=== PATIENT | female | born 1960 | race Caucasian/White ===

== ENCOUNTER 2023-10-24 12:15 | Emergency (ER) | payer OTHER, BC, SELFPAY ==
[2023-10-24 12:19] VITALS: BP 178/93; PULSE 70; RESP 18; TEMP 36.4; O2SAT 98; BMI 39.9
--- NOTE | 2023-10-24 13:19 | ED.CHESTPAIN ---
HPI - Chest Pain General Chief Complaint: Chest Pain Stated Complaint: chest pains,shortness of breath Time Seen by Provider: 10/24/23 12:42 History of Present Illness HPI narrative: This 62-year-old female comes in reporting chest discomfort upon awakening this morning. She states that the pain is somewhat reproducible when palpating across her left upper chest. She also had some diaphoresis. She does not report any vomiting or lightheadedness. She at does not report any exercise intolerance causing chest pain recently. She has been doing more active things recently including stair climbing which does cause shortness of breath but no chest pain. She was also to using 3 lb weights in her arms recently and felt like she over did it with some arm discomfort. She is taking Mounjaro for diabetes and states that it has not produced any weight loss for her. The dosage was increased about a week ago. Related Data Home Medications ?Medication ?Instructions ?Recorded ?Confirmed glimepiride 1 mg tablet mg PO 10/24/23 rosuvastatin 10 mg tablet 10 mg PO QPM 10/24/23 10/24/23 tirzepatide 7.5 mg/0.5 mL mg subcut 10/24/23 subcutaneous pen injector (Mounjaro) Allergies Allergy/AdvReac Type Severity Reaction Status Date / Time latex Allergy Unverified 10/24/23 12:25 Review of Systems Status of ROS Reports: 10 or more systems reviewed and unremarkable except as noted in History and below Narrative Constitutional: No fevers, no weight gain or loss. Eyes: No discharge. No vision changes. HENT: No congestion, no sore throat, no ear pain. Cardiovascular: No palpitations. Respiratory: No shortness of breath, no wheezes, no cough. Gastrointestinal: No abdominal pain, no vomiting, no diarrhea. Genitourinary: No dysuria, no hematuria. Musculoskeletal: Normal range of motion. Skin: No rashes, no pruritis. Neurological: No dizziness, weakness, sensory change, speech change. Endo/Heme/Allergies: No bruising or bleeding. No polydipsia. Pysch: no suicidality, no anxiety, no insomnia. All other systems reviewed and are negative. PFSH PFSH Social History Smoking Status: Never smoker Do you use any of these nicotine containing products: None Second hand tobacco smoke exposure: No How often do you have a drink containing alcohol: never AUDIT-C Alcohol total score: 0 Non-prescribed substance use: denies use Exam Narrative Exam Narrative: Constitutional: Well-developed, well-nourished, no acute distress. HEENT: Normocephalic, atraumatic. Neck: Normal range of motion. Nontender. Supple. Heart: Regular. No murmurs. Normal rate. Intact distal pulses. Lungs: Clear to auscultation. No wheezes, rhonchi, or rales. Chest discomfort is reproducible when palpating a across her left upper chest. Abdomen: Normal bowel sounds. Nontender. No rebound tenderness. Genitalia: Deferred. Back: No midline tenderness. Normal range of motion. Extremities: Normal range of motion. No injury. Skin: Intact. No rash. Warm. No erythema or pallor. Neurologic: No altered sensation. No weakness. Alert and oriented. Psychiatric: No suicidality. No anxiety or depression. No insomnia. Nursing notes and vitals signs are reviewed. Const Vital Signs, click to edit/add: Vital Signs - 24 hr 10/24/23 12:19 Temperature 97.5 F L Pulse Rate [Right Pulse Oximeter] 70 Respiratory Rate 18 Blood Pressure [Right Upper Arm] 178/93 H Pulse Oximetry 98 Oxygen Delivery Method Room Air Course Vital Signs Vital signs: Initial Vital Signs Temperature 97.5 F L 10/24/23 12:19 Temperature Source Temporal Artery Scan 10/24/23 12:19 Pulse Rate 70 10/24/23 12:19 Pulse Rhythm Regular 10/24/23 12:19 Respiratory Rate 18 10/24/23 12:19 Blood Pressure 178/93 H 10/24/23 12:19 Blood Pressure Mean 121 H 10/24/23 12:19 Blood Pressure Position Sitting 10/24/23 12:19 Pulse Oximetry 98 10/24/23 12:19 Oxygen Delivery Method Room Air 10/24/23 12:19 Vital Signs Temperature 97.5 F L 10/24/23 12:19 Pulse Rate 70 10/24/23 12:19 Respiratory Rate 18 10/24/23 12:19 Blood Pressure 178/93 H 10/24/23 12:19 Pulse Oximetry 98 10/24/23 12:19 Oxygen Delivery Method Room Air 10/24/23 12:19 Temperature 97.5 F L 10/24/23 12:19 Pulse Rate 70 10/24/23 12:19 Respiratory Rate 18 10/24/23 12:19 Blood Pressure 178/93 H 10/24/23 12:19 Pulse Oximetry 98 10/24/23 12:19 Oxygen Delivery Method Room Air 10/24/23 12:19 MDM - Chest Pain MDM Narrative Medical decision making narrative: This patient comes in with chest discomfort upon awakening this morning as described above. She continues to have constant tightness and discomfort in her left upper chest that is reproducible when palpating this area and sometimes when taking a deep breath. Her EKG and labs all returned with reassuring findings. Most likely her symptoms are chest wall related. The patient states that she was increasing activity recently including using some weights with her arms and now likely has aches and pains related to overuse injury. She is okay to be discharged home. She states that she will use [id number] medicines as needed and directed an increase activity as tolerated. Lab Data Labs: Lab Results 10/24/23 10/24/23 Range/Units 13:35 13:45 WBC 9.95 (4.50-11.00) K/uL RBC 4.95 (4.00-5.20) m/uL Hgb 13.2 (12.0-16.0) gm/dL Hct 41.1 (33.0-51.0) % MCV 83 (80-100) fL MCH 27 (26-34) pg MCHC 32 (32-36) gm/dL RDW Coeff of [place] 13.6 (11.5-15.5) % Plt Count 257 (140-440) K/uL Neut % (Auto) 65.1 (42.0-72.0) % Lymph % (Auto) 26.3 (20-44) % [place] % (Auto) 7.7 (0.0-11.0) % Eos % (Auto) 0.6 (0.0-7.0) % Baso % (Auto) 0.1 (0.0-3.0) % Neut # (Auto) 6.47 (1.7-7.0) K/uL Lymph # (Auto) 2.62 (0.90-2.90) K/uL [place] # (Auto) 0.80 (0.00-0.90) K/UL Eos # (Auto) 0.06 (0.00-0.50) K/uL Baso # (Auto) 0.01 (0.00-0.30) K/uL Abs Immat Gran (auto) 0.02 (0.00-0.30) K/uL Imm/Tot Granulo (auto) 0.2 % Sodium 139 (135-149) mmol/L Potassium 4.1 (3.6-5.1) mmol/L Chloride 106 (96-114) mmol/L Carbon Dioxide 27 (20-32) mmol/L Anion Gap 6 L (7-15) mEq/L BUN 9 (7-30) mg/dL Creatinine 0.6 (0.5-1.5) mg/dL Estimated Creat Clear 53.21 Estimated GFR 100 ml/min Glucose 153 H (60-115) mg/dL Calcium 9.8 (8.4-10.6) mg/dL POC Troponin I 0.02 (0.01-0.04) ng/ml ECG Data Attestation: I personally reviewed and interpreted this ECG as follows: Interpretation: Normal sinus rhythm. Rate is 69 beats per minute. There are no ST or T-wave abnormalities. There are occasional premature ventricular complexes. Discharge Plan Discharge Clinical Impression: Chest wall pain Patient Disposition: Home, Self-Care Condition: Stable Additional Instructions: Increase activity as tolerated. Use [id number] medicines as needed and directed. Follow up with MD or return if worsening. Prescriptions: No Action glimepiride 1 mg tablet PO rosuvastatin 10 mg tablet 10 mg PO QPM Mounjaro 7.5 mg/0.5 mL pen injector subcut Follow Up/Referrals: Glenn Riley PA-C [Primary Care Provider] - Stand Alone Forms: [facility] Info Instructions
[2023-10-24 13:47] LABS: Hematocrit 41.1 % (33.0-51.0); Hemoglobin* 13.2 gm/dL (12.0-16.0); Lymphocytes Percent Auto 26.3 % (20-44); Mean Corpuscular HGB Conc 32 gm/dL (32-36); Mean Corpuscular Hemoglobin 27 pg (26-34); Mean Corpuscular Volume 83 fL (80-100); Neutrophils Percent Auto 65.1 % (42.0-72.0); Platelet Count* 257 K/uL (140-440); RDW Coefficient of Variation % 13.6 % (11.5-15.5); Red Blood Count 4.95 m/uL (4.00-5.20); White Blood Count* 9.95 K/uL (4.50-11.00)
[2023-10-24 13:48] LABS: Basophils Absolute Auto 0.01 K/uL (0.00-0.30); Basophils Percent Auto 0.1 % (0.0-3.0); Eosinophils Absolute Auto 0.06 K/uL (0.00-0.50); Eosinophils Percent Auto 0.6 % (0.0-7.0); Immature Granulocytes Abs Auto 0.02 K/uL (0.00-0.30); Immature Granulocytes Pct Auto 0.2 %; Lymphocytes Absolute Auto 2.62 K/uL (0.90-2.90); Monocytes Percent Auto 7.7 % (0.0-11.0); Neutrophils Absolute Auto 6.47 K/uL (1.7-7.0)
[2023-10-24 13:51] LABS: Slide Review Reflex No
[2023-10-24 13:52] LABS: Troponin, Point-of-Care* 0.02 ng/ml (0.01-0.04)
[2023-10-24 14:00] LABS: Chloride* 106 mmol/L (96-114); Potassium* 4.1 mmol/L (3.6-5.1); Sodium* 139 mmol/L (135-149)
[2023-10-24 14:02] LABS: Creatinine* 0.6 mg/dL (0.5-1.5); Est. Creatinine Clearance* 53.21; Estimated Glomerular Filt Rate 100 ml/min
[2023-10-24 14:03] LABS: Anion Gap 6 mEq/L (7-15); Blood Urea Nitrogen* 9 mg/dL (7-30); Calcium* 9.8 mg/dL (8.4-10.6); Carbon Dioxide* 27 mmol/L (20-32); Glucose* 153 mg/dL (60-115)
[2023-10-24 15:46] LABS: D Dimer Quantitative* 0.26 ug/ml (0.00-0.50)
== END 2023-10-24 15:05 | disposition home or self-care (01) ==
PROVIDERS: Emergency Provider Emergency Medicine Emergency Medical Services; PCP Physician Assistant Medical
DX: R07.9 Chest pain, unspecified (principal)
CPT/HCPCS: 36415; 80048; 84484; 85025; 85379; 93005; 99284

== ENCOUNTER 2024-02-16 10:10 | Emergency (ER) | payer OTHER, MEDICARE, SELFPAY ==
[2024-02-16 10:47] VITALS: BP 137/72; PULSE 67; RESP 20; TEMP 36.1; O2SAT 95; BMI 38.1
--- NOTE | 2024-02-16 12:17 | CRLHL7_ITS ---
For Patients: As a result of the Century Cures Act, medical imaging exams and procedure reports are released immediately into your electronic medical record. You may view this report before your referring provider. If you have questions, please contact your health care provider. Indication: Swelling at the angle of the jaw Technique: Volumetric multidetector CT images of the cervical soft tissues were obtained without the administration of low osmolar intravenous contrast. No low osmolar intravenous contrast Comparison: None available. Findings: The partially visualized brain parenchyma is normal in attenuation without evidence of abnormal enhancement. The orbits and their contents are within normal limits. There is minimal chronic mucosal thickening. The mastoid air cells are clear. The nasopharynx is unremarkable. The fossae of Rosenmuller are clear. The oropharynx is unremarkable. The hypopharynx is clear. There is inflammatory change of the left parotid gland with likely areas of scattered focal fatty sparing and/or interspersed intraglandular lipoma. No obvious fluid collection is identified. The vocal folds are nonthickened with symmetrical appearance. The thyroid gland is normal in attenuation. There are reactive cervical lymph nodes. The lung apices are clear. The cervical vertebral body heights are grossly maintained with moderate to severe multilevel degenerative disc disease. Impression: Moderate inflammatory change of the left parotid gland commensurate with developing parotiditis. No obvious fluid collection is appreciated. Minimal reactive lymph nodes. No obvious obstructive sialolith. Please note that all CT scans at this facility use dose modulation, iterative reconstruction, and/or weight-based dosing when appropriate to reduce radiation dose to as low as reasonably achievable. Dictated by Adrian Garza MD @ 02/16/2024 1:12:26 PM (Electronically Signed)
[2024-02-16 12:32] LABS: Creatinine, Point-of-Care* 0.7 mg/dl (0.6-1.3)
[2024-02-16 13:07] VITALS: BP 144/77; PULSE 72; RESP 20; O2SAT 97
--- NOTE | 2024-02-16 13:12 | ED.GENADULT ---
HPI - General Adult General Chief complaint: Unspecified Complaint, Adult Stated complaint: LT jaw neck swelling pain Time Seen by Provider: 02/16/24 11:55 Source: patient Mode of arrival: ambulatory Limitations: no limitations History of Present Illness HPI narrative: Patient is a 63-year-old female coming in today concerned about swelling of her face and neck. She states that she noticed it not this morning but yesterday morning when she woke up. She felt a fullness in her jaw going into her neck. The area felt itchy and uncomfortable. So she tried some ice packs. She tried to get in with her physician but was unable to do so. This morning she woke up and she felt that the fullness in her face was bigger, the whole area felt very tight and uncomfortable. The discomfort radiated into her ear in all the way down into her neck. She denies any systemic symptoms like fevers or chills. No difficulty breathing or swallowing. No trismus. No difficulty hearing. No recent infection or illness that she is aware of. Patient states that she is fully immunized. She does have a history of diabetes and hyperlipidemia. Related Data Home Medications ?Medication ?Instructions ?Recorded ?Confirmed glimepiride 1 mg tablet mg PO 10/24/23 rosuvastatin 10 mg tablet 10 mg PO QPM 10/24/23 10/24/23 tirzepatide 7.5 mg/0.5 mL mg subcut 10/24/23 subcutaneous pen injector (Nanette) Previous Rx's ?Medication ?Instructions ?Recorded amoxicillin 875 mg-potassium 1 tab PO BID 7 days #14 tabs 02/16/24 clavulanate 125 mg tablet Allergies Allergy/AdvReac Type Severity Reaction Status Date / Time acetaminophen [From Percocet] Allergy Intermediate Hives Verified 02/16/24 10:46 Iodinated Contrast Media Allergy Intermediate Difficulty Verified 02/16/24 10:46 Breathing oxycodone [From Percocet] Allergy Intermediate Hives Verified 02/16/24 10:46 latex Allergy Unverified 10/24/23 12:25 Review of Systems Status of ROS: Reports: 10 or more systems reviewed and unremarkable except as noted in History and below PFSH PFS Social History Smoking Status: Never smoker Do you use any of these nicotine containing products: None Second hand tobacco smoke exposure: No How often do you have a drink containing alcohol: never AUDIT-C Alcohol total score: 0 Non-prescribed substance use: denies use Exam Narrative: Exam Narrative: Overweight come well-developed patient in no acute distress. Alert and oriented. Answers questions appropriately. Mood and affect are appropriate. Thoughts are goal oriented and rational. No tangential or magical thinking noted. Patient speaks in full sentences without needing to catch her breath. Voice sounds normal. Speech is not slurred or pressured. HEENT: Normocephalic atraumatic. Pupils are equally round reactive to light. Extraocular muscles are intact. Conjunctivae are moist without any icterus noted. Moist mucous membranes. Posterior pharynx is normal. Neck is soft. Patient has a firm fullness that starts just anterior and distal to the ear involves the entire angle of the jaw. The tenderness radiates into her neck and she has tenderness below the angle of the jaw on the left side. There is no lymphadenopathy appreciated. TMs are clear bilaterally. She has no trismus, can open and close her mouth without pain. She has no tenderness along the gum lines on the left side of upper and lower teeth. No pain of the buccal mucosa. Skin: Well perfused without any obvious rashes. Const: Vital Signs, click to edit/add: Vital Signs - 24 hr 02/16/24 10:47 02/16/24 13:07 Temperature 96.9 F L Pulse Rate [Pulse Oximeter] 67 72 Respiratory Rate 20 20 Blood Pressure [Ri ght Forearm] 137/72 144/77 H Pulse Oximetry 95 97 Oxygen Delivery Me thod Room Air Room Air Course Course ED Course: Differential diagnosis includes parotiditis, abscess formation, mass of the jaw. We did go ahead and proceed with a CT scan of the neck. IV contrast was not used secondary to wake IV contrast allergy. This showed a developing left-sided parotiditis. CBC unremarkable. Vital Signs Vital signs: Initial Vital Signs Temperature 96.9 F L 02/16/24 10:47 Temperature Source Temporal Artery Scan 02/16/24 10:47 Pulse Rate 67 02/16/24 10:47 Respiratory Rate 20 02/16/24 10:47 Blood Pressure 137/72 02/16/24 10:47 Blood Pressure Mean 93 02/16/24 10:47 Pulse Oximetry 95 02/16/24 10:47 Oxygen Delivery Method Room Air 02/16/24 10:47 Vital Signs Temperature 96.9 F L 02/16/24 10:47 Pulse Rate 67 02/16/24 10:47 Respiratory Rate 02/16/24 10:47 Blood Pressure 137/72 02/16/24 10:47 Pulse Oximetry 95 02/16/24 10:47 Oxygen Delivery Method Room Air 02/16/24 10:47 Temperature 96.9 F L 02/16/24 10:47 Pulse Rate 72 02/16/24 13:07 Respiratory Rate 02/16/24 13:07 Blood Pressure 144/77 H 02/16/24 13:07 Pulse Oximetry 97 02/16/24 13:07 Oxygen Delivery Method Room Air 02/16/24 13:07 Medical Decision Making MDM Narrative Medical decision making narrative: 63-year-old female with left-sided parotitis. Will treat with Augmentin b.i.d.. Lab Data Lab results reviewed: Yes I reviewed the patient's lab results Labs: Lab Results 02/16/24 02/16/24 Range/Units 12:31 13:45 WBC 10.63 (4.50-11.00) K/uL RBC 4.81 (4.00-5.20) m/uL Hgb 13.0 (12.0-16.0) gm/dL Hct 40.6 (33.0-51.0) % MCV 84 (80-100) fL MCH 27 (26-34) pg MCHC 32 (32-36) gm/dL RDW Coeff of [place] 13.5 (11.5-15.5) % Plt Count 248 (140-440) K/uL Neut % (Auto) 69.0 (42.0-72.0) % Lymph % (Auto) 22.9 (20-44) % [place] % (Auto) 6.9 (0.0-11.0) % Eos % (Auto) 0.8 (0.0-7.0) % Baso % (Auto) 0.2 (0.0-3.0) % Neut # (Auto) 7.35 H (1.7-7.0) K/uL Lymph # (Auto) 2.43 (0.90-2.90) K/uL [place] # (Auto) 0.70 (0.00-0.90) K/UL Eos # (Auto) 0.08 (0.00-0.50) K/uL Baso # (Auto) 0.02 (0.00-0.30) K/uL Abs Immat Gran (auto) 0.02 (0.00-0.30) K/uL Imm/Tot Granulo (auto) 0.2 % POC Creatinine 0.7 (0.6-1.3) mg/dl Imaging Data Neck CT: Attestation: I have reviewed the pertinent imaging results. Radiologist's impression: Volumetric multidetector CT images of the cervical soft tissues were obtained without the administration of low osmolar intravenous contrast. No low osmolar intravenous contrast Comparison: None available. Findings: The partially visualized brain parenchyma is normal in attenuation without evidence of abnormal enhancement. The orbits and their contents are within normal limits. There is minimal chronic mucosal thickening. The mastoid air cells are clear. The nasopharynx is unremarkable. The fossae of Rosenmuller are clear. The oropharynx is unremarkable. The hypopharynx is clear. There is inflammatory change of the left parotid gland with likely areas of scattered focal fatty sparing and/or interspersed intraglandular lipoma. No obvious fluid collection is identified. The vocal folds are nonthickened with symmetrical appearance. The thyroid gland is normal in attenuation. There are reactive cervical lymph nodes. The lung apices are clear. The cervical vertebral body heights are grossly maintained with moderate to severe multilevel degenerative disc disease. Impression: Moderate inflammatory change of the left parotid gland commensurate with developing parotiditis. No obvious fluid collection is appreciated. Minimal reactive lymph nodes. No obvious obstructive sialolith. Discharge Plan Discharge Clinical Impression: Acute parotitis Patient Disposition: Home, Self-Care Condition: Stable Additional Instructions: Take all antibiotics as prescribed. Return to the ER if you have difficulty breathing, talking or swallowing. Return to the ER if you develop a fever. Prescriptions: New amoxicillin-pot clavulanate 875-125 mg tablet 1 tab PO BID 7 Days Qty: 14 0RF No Action glimepiride 1 mg tablet PO rosuvastatin 10 mg tablet 10 mg PO QPM Mounjaro 7.5 mg/0.5 mL pen injector subcut Follow Up/Referrals: Provider,Not a Local [Primary Care Provider] - Stand Alone Forms: [employer] Info Instructions
[2024-02-16 13:56] LABS: Basophils Absolute Auto 0.02 K/uL (0.00-0.30); Basophils Percent Auto 0.2 % (0.0-3.0); Eosinophils Absolute Auto 0.08 K/uL (0.00-0.50); Eosinophils Percent Auto 0.8 % (0.0-7.0); Hematocrit 40.6 % (33.0-51.0); Immature Granulocytes Abs Auto 0.02 K/uL (0.00-0.30); Immature Granulocytes Pct Auto 0.2 %; Lymphocytes Absolute Auto 2.43 K/uL (0.90-2.90); Lymphocytes Percent Auto 22.9 % (20-44); Mean Corpuscular HGB Conc 32 gm/dL (32-36); Mean Corpuscular Hemoglobin 27 pg (26-34); Mean Corpuscular Volume 84 fL (80-100); Monocytes Percent Auto 6.9 % (0.0-11.0); Neutrophils Absolute Auto 7.35 K/uL (1.7-7.0); Platelet Count* 248 K/uL (140-440); RDW Coefficient of Variation % 13.5 % (11.5-15.5); Red Blood Count 4.81 m/uL (4.00-5.20); White Blood Count* 10.63 K/uL (4.50-11.00)
[2024-02-16 13:59] LABS: Slide Review Reflex No
[2024-02-16 14:16] LABS: C Reactive Protein* 2.2 mg/dL (0.5-1.0)
== END 2024-02-16 14:31 | disposition home or self-care (01) ==
PROVIDERS: Emergency Provider Family Medicine
DX: K11.21 Acute sialoadenitis (principal)
CPT/HCPCS: 36415; 70490; 82565; 85025; 86140; 99284